=== PATIENT | female | born 1960 | race Caucasian/White ===

== ENCOUNTER 2021-12-10 17:15 | Emergency (ER) | payer MEDICARE, MEDICAID ==
[2021-12-10 17:39] VITALS: BP 127/78
--- NOTE | 2021-12-10 17:52 | XRAY Report ---
PROCEDURE: Knee 4 View RT INDICATIONS: Trauma TECHNIQUE: 4 views of the right knee(s) were acquired. COMPARISON: None. FINDINGS: Bones: No fractures or dislocations. No suspicious bony lesions. Moderate medial compartment narro wing. Soft tissues: No joint effusion. No suspicious soft tissue calcifications. IMPRESSION: No acute fracture. No osseous lesion. If symptoms and/or clinical suspicion for patholog y continue, further assessment with repeat plain films, or advanced imaging (e.g., CT, MRI, or bone s can) is recommended for further assessment. Reviewed by: Rosalba Arteaga MD on 12/10/2021 5:50 PM PDT Approved by: Rosalba Arteaga MD on 12/10/2021 5:50 PM PDT Station ID: [id number]
[2021-12-10] MEDS ORDERED: TETANUS/DIPHTHERIA/PERTUSSIS 0.5 ML SYRINGE IM ONE (19:02)
[2021-12-10] MEDS ORDERED: BACITRACIN ZINC OINT 1 PACKET TOP STA (19:02)
[2021-12-10] MEDS ORDERED: IBUPROFEN 600 MG TABLET PO STA (19:02)
--- NOTE | 2021-12-10 19:10 | ED Physician Documentation ---
History of Present Illness - Stated complaint Stated Complaint: RT KNEE PX/INJ - Chief complaint Chief Complaint: Trauma Ext - Additonal information Additional information: 61-year-old female presents emergency department for evaluation acute right knee pain. Reports that she was walking and her knee simply gave out and she fell hard onto the concrete. She has had difficulty bearing weight since. She presents with a large abrasion and hematoma to the anterior knee. Review of Systems Constitutional: reports: Reviewed and negative Throat: reports: Reviewed and negative Cardiac: reports: Reviewed and negative Respiratory: reports: Reviewed and negative Skin: reports: Abrasion (s) Musculoskeletal: reports: Joint pain PD PAST MEDICAL HISTORY - Allergies Allergies/Adverse Reactions: Allergies Allergy/AdvReac Type Severity Reaction Status Date / Time dexamethasone Allergy Unknown Verified 12/10/21 17:31 prochlorperazine Allergy Unknown Verified 12/10/21 17:31 [id number] Reductase Allergy Unknown Verified 12/10/21 17:31 Inhibitor venlafaxine Allergy Unknown Verified 12/10/21 17:31 PD ED PE EXPANDED - General General: Alert, No acute distress - Extremities Extremities: Right knee (Large abrasion and hematoma over the anterior knee. No laxity. Normal flexion extension. Painful to bear weight.) Results - Vitals Vitals: Vital Signs - 24 hr 12/10/21 17:24 Temperature 36.6 C Heart Rate 73 Respiratory 14 Rate Blood Pressure 127/78 O2 Saturation 96 Oxygen O2 Source Room air - Rads (name of study) knee xray Radiology: Final report received (No acute fracture or dislocation.) PD MEDICAL DECISION MAKING - ED course Complexity details: re-evaluated patient, considered differential, d/w patient ED course: 7-year-old female presents emergency department for evaluation of acute right knee pain. She sustained a ground-level fall in which she fell directly onto the knee today. No blood thinners. No strike of the head and no loss of consciousness. She has a large abrasion and hematoma on the anterior knee without laxity. X-ray of the knee is negative for fracture. Patient had bacitracin applied to the wounds. Tetanus was updated today. She is given an Alberto wrap and a walker to aid in ambulation. Advise close follow-up with PCP. If not markedly improved over the next 1 to 2 weeks may benefit from referral to orthopedics. Departure - Departure Disposition: 01 Home, Self Care Clinical Impression: Contusion of right knee Qualifiers: Encounter type: initial encounter Qualified Code(s): S80.01XA - Contusion of right knee, initial encounter Condition: Stable Record reviewed to determine appropriate education?: Yes Comments: Christiana lewis are seen today in the emergency department after fall in which she fell onto your knee. The x-ray does not show any broken bones. However you do have a large abrasion and hematoma/contusion to this knee. I do recommend that you wash the abrasion with warm soap and water every day and apply any antibiotic ointment such as bacitracin or Neosporin. Use the Alberto wrap on your knee when out of bed. This will help compress the hematoma and prevent it from getting larger causing increased pain. In general I recommend that you take Tylenol and ibuprofen for discomfort. Please use the walker to aid in ambulation. If her symptoms or not much better over the next 1 to 2 weeks your primary care doctor may want to make a referral for you to orthopedics.
== END 2021-12-10 19:25 | disposition home or self-care (01) ==
LOC: ED 17:15
DX: S80.01XA Contusion of right knee, initial encounter (principal); W18.30XA Fall on same level, unspecified, initial encounter; Z23 Encounter for immunization; Z71.85 Encounter for immunization safety counseling
CPT/HCPCS: 73564; 90471; 90715; 99282; 99283; A9270

== ENCOUNTER 2022-03-22 08:00 | Outpatient (CLI) | payer MEDICARE, MEDICAID ==
--- NOTE | 2022-03-23 08:37 | XRAY Report ---
PROCEDURE: Hip 2 View RT INDICATIONS: RIGHT HIP PAIN TECHNIQUE: AP pelvis and lateral view of the right hip were acquired. COMPARISON: None. FINDINGS: Bones: No fractures or dislocations. No suspicious bony lesions. The visualized pelvic ring appear s intact. [id number] hip and secretory ductal degeneration bilaterally. Degenerative disc and f acet disease in the lower lumbar spine noted. Soft tissues: No suspicious soft tissue calcifications or masses. IMPRESSION: 1. No acute osseous abnormalities. If clinical symptoms persist, a repeat examination in 7-10 days or mesenteric imaging such as CT or MRI could be helpful. 2. 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 Reviewed by: Alix Loomis MD on 03/23/2022 8:35 AM PDT Approved by: Alix Loomis MD on 03/23/2022 8:35 AM PDT Station ID: [id number]
== END 2022-03-22 23:59 | disposition home or self-care (01) ==
LOC: DI.WOS 08:00
PROVIDERS: ATTEND Physician Assistant Surgical
DX: M16.0 Bilateral primary osteoarthritis of hip (principal); M51.36 Other intervertebral disc degeneration, lumbar region; M47.816 Spondylosis without myelopathy or radiculopathy, lumbar region; M47.898 Other spondylosis, sacral and sacrococcygeal region